=== PATIENT | female | born 1985 ===

== ENCOUNTER 2017-12-28 14:50 | Inpatient (IN) ==
[~2017-12-28 14:50] MED LIST: *HR* Nalbuphine 10 MG/ML AMPUL IVP PRN; Famotidine 20 MG/2 ML VIAL IVP PRN; Naloxone 0.4 MG/ML INJ IVP PRN; Ondansetron 4 MG/2 ML VIAL IVP PRN
--- NOTE | 2017-12-28 15:01 | OB/GYN History & Physical ---
Date of Encounter: 12/28/17 Time of Encounter: 14:55 Assessment and Plan (1) and not yet delivered in third trimester Current visit: Yes Status: Acute (2) 41 weeks gestation of Current visit: Yes Status: Acute (3) Grand multipara in labor in third trimester Current visit: Yes Status: Acute (4) Breech presentation Current visit: Yes Status: Acute Patient is not wanting a section and would prefer vaginal delivery. Did have a long discussion with her and proceed on with a vaginal induction of a breech presentation. Qualifiers: Fetus number: single or unspecified fetus Qualified Code(s): O32.1XX0 - Maternal care for breech presentation, not applicable or unspecified History of Present Illness HPI: Ms. Wood is a 32 year old female 12 para 8 at 41-3/7 weeks who was brought in by her commercial sales director for evaluation for possible possible vaginal delivery. Patient is been known to be breech and has not gone into labor. Did irrigate concerned because she is over 41 weeks and has not gone into labor and wanted her assessed to determine if she could deliver vaginally versus section. Patient does not want a section of at all possible but is not in active labor at this time. Patient is not done having children and we had long discussion about the risk of a breech delivery versus section and subsequent sections in the future. Being this is the patient's ninth baby and she was delivered a 8 pound plus baby did advise her that there is possibility of being up deliver breech. I am not comfortable sending her home at 41-1/2 weeks with questionable dates. She states she did have an ultrasound that ultrasound of 2 weeks ago which confirmed a baby was breech and the baby they measured at approximately 8 pounds. Patient is already 5 cm I recommended proceeding on with an induction for breech. Patient was counseled extensively on the potential risk of delivering a breech baby and potential risk of head entrapment but she still wants to proceed on. Patient had refused GBS by her commercial sales director at 41 weeks she is low risk we will go ahead and get an IV in her and get at least a CBC. Did inform of double set up just in case we do have to proceed on with a section. Past Med Surg Social Fam HX - Past Medical History Source: patient Medical history: no medical history Psychiatric history: no psych history - Social History Smoking Status: Never smoker Smokeless Tobacco Status: No Alcohol use: none Drug use: none Occupational status: unemployed Current living situation: Home - Independent Activity Level: Independent ambulation Recent Out of Country Travel Within the Last 8 Weeks: No Exposure or Possible Exposure to Illness During Travel: No Obstetrical History - Pregnancies : 12 Para: 8 Term: 8 : 0 Ab's: 3 Livin Review of System OB All systems PM: reviewed and no additional remarkable complaints except as stated Exam - Constitutional Constitutional: well developed, well nourished, no acute distress, average body habitus - HEENT HEENT: Mucus Membranes Moist - Neck Neck exam: full ROM - Lungs Respiratory exam: CTAB - Cardiovascular Cardiovascular exam: RRR - Abdomen Abdomen: Present: bowel sounds normal, gravid - Cervix Dilation: 4 Effacement: 70 Station: -3 ( heart tones 140s reactive no contraction seen) Results All other labs normal. - VTE Reasons for not Prescribing Prophylaxis: Treatment not Indicated - Low risk for VTE
[2017-12-28] MEDS ORDERED: miSOPROStol 25 MCG TABLET PO PRN (15:05)
[2017-12-28] MEDS: Ringers Solution, Lactated 1,000 ML IVC SCH ×2 (15:52→17:38)
[2017-12-28 15:59] LABS: Basophils % 0.3 %; Eosinophils # 0.1 K/mcL (0.0-0.6); Eosinophils % 0.9 %; Hematocrit 32.6 % (35.3-44.9); Hemoglobin 10.9 g/dL (11.5-15.4); Immature Granulocytes % 0.3 % (0-4); Lymphocytes # 1.8 K/mcL (0.6-4.6); Lymphocytes % 28.6 %; Mean Corpuscular HGB Conc 33.4 g/dL (31.6-35.5); Mean Corpuscular Hemoglobin 29.5 pg (28.0-33.3); Mean Corpuscular Volume 88.1 fL (83.0-100.0); Mean Platelet Volume 11.3 fL (9.4-12.4); Monocytes # 0.4 K/mcL (0.0-1.3); Monocytes % 6.2 %; Neutrophils # 4.1 K/mcL (1.6-8.9); Nucleated Red Blood Cells 0.3 /100 WBC (0); Platelet Count 121 K/mcL (140-400); Red Cell Distribution Width 16.1 % (11.5-14.5); Segmented Neutrophils % 63.7 %
[2017-12-28] MEDS ORDERED: Metoclopramide 10 MG/2 ML VIAL IVP ONE (16:06)
[2017-12-28] MEDS ORDERED: Penicillin G Potassium 5,000,000 UNIT in 0.9 % Sodium Chloride Mini Bag 100 ML IVPB ONE (16:37)
[2017-12-28] MEDS ORDERED: 0.9 % Sodium Chloride 1,000 ML ONE (17:06)
--- NOTE | 2017-12-28 18:35 | OB Labor Progress Note ---
Date of Encounter: 12/28/17 Time of Encounter: 16:30 Labor Progress Note - Subjective Subjective: Patient states having contractions but not that uncomfortable yet - Cervix Cervix: 5/80/-3 AROM clear fluid - Heart Tones Heart Tones: heart tones 140s reactive patient's had some decelerations periodically since arriving an IUPC was placed and soon after this patient did have what appeared to be a late 1 but no other decelerations noted with subsequent contractions - Anna Anna: IUPC placed contractions irregular - Plan Plan: Continue current care patient continues to show late decelerations we will discuss section
[2017-12-28] MEDS ORDERED: Penicillin G Potassium 2,500,000 UNIT in 0.9 % Sodium Chloride 100 ML IVPB SCH (20:00)
--- NOTE | 2017-12-28 20:18 | OB/GYN Procedure Note ---
Delivery - Delivery Date: 12/28/17 Provider: Anderson Batres Intrapartum events: none Delivery induction: misoprostol Delivery augmentation: rupture of membranes Delivery monitor: external FHT, external uterine, internal uterine Anesthesia: local Estimated Blood Loss: 100 - Infant (s) A Infant Delivery Date: 12/28/17 Infant Delivery Time: 19:33 Presentation: miles breech Position: unknown (breech) Route of delivery: breech extraction Gender: Male Viability: Viable Pounds: 7 Ounces: 11 Weight Gram: 3.495 kg at 1 minute: 2 at 5 mins: 7 Shoulder Dystocia: not encountered Specimens collected: cord blood Placenta: spontaneous Cord: 3 umbilical vessels - Repair Episiotomy: none Laceration Description: Perineal - 2nd Degree - Complications Delivery complications: none Delivery comments: Patient is a 32-year-old 12 para 8 41-3/7 weeks. Presented from her birthing center for possible section versus breech delivery patient has been stuck at 4 cm and was known to be breech her production service manager was concerned that she was not going into labor being postdates wanted her assessed. He did have her come to labor and delivery she was noted to be breech patient really does not want a section because she is not done having children and is wanting more children in the future. We did discuss the potential risk of delivering the baby breech but being that she is a grand multiparity and has delivered 8 pound babies before I felt it was safe to proceed on and get her delivered vaginally. The patient was 4 cm on admission we did give her 1 dose of Cytotec 50 g by mouth an artificial rupture when she was 5 cm. Patient with this rapidly from this point became complete patient pushed approximately 2 -3 times and we were able to deliver the fetus buttocks and legs. Once we got to the shoulders patient stopped pushing. We did encourage her to keep pushing I was able to sweep the arms across the chest and delivering the head. Infant' s cord was immediately cut and infant was handed off to waiting pediatric team. Apgars were 2 at 1 minute 7 at 5 minutes weight was 7 lbs. 11 oz. Placenta was delivered spontaneously with three-vessel cord government gauger Dr. Batres, first crusher [facility] 3, anesthesia local estimated blood loss was 100 cc. Patient had a small second-degree perineal laceration which was bleeding cervix and vagina visualized intact laceration was repaired with a 4-0 Monocryl in a running locking stitch. Cervix and vagina was visualized intact, patient tolerated the delivery well. She will be observed 2 hours before being taken the floor. - Disposition Mom disposition: stable in LDR [place] disposition: stable in LDR
[2017-12-28] MEDS ORDERED: Ibuprofen 600 MG TABLET PO PRN (20:26)
[2017-12-28] MEDS ORDERED: Oxytocin 20 units/ LR 1000 mL 20 UNIT/1,000 ML BAG IVC SCH (20:26)
[2017-12-28] MEDS ORDERED: Acetaminophen 325 MG TABLET PO PRN (20:26)
[2017-12-29 04:38] LABS: Basophils % 0.4 %; Eosinophils % 0.5 %; Hemoglobin 10.4 g/dL (11.5-15.4); Immature Granulocytes % 0.4 % (0-4); Lymphocytes % 24.3 %; Mean Corpuscular HGB Conc 33.5 g/dL (31.6-35.5); Mean Corpuscular Hemoglobin 29.3 pg (28.0-33.3); Mean Corpuscular Volume 87.3 fL (83.0-100.0); Mean Platelet Volume 11.7 fL (9.4-12.4); Monocytes # 0.6 K/mcL (0.0-1.3); Monocytes % 6.8 %; Neutrophils # 5.7 K/mcL (1.6-8.9); Platelet Count 107 K/mcL (140-400); Red Blood Count 3.55 M/mcL (3.82-4.97); Red Cell Distribution Width 16.1 % (11.5-14.5); Segmented Neutrophils % 67.6 %
[2017-12-29 08:48] VITALS: BP 107/69
[2017-12-29] MEDS ORDERED: Prenatal Vit/FA 1 EACH TABLET PO SCH (09:00)
--- NOTE | 2017-12-29 10:02 | Discharge Summary ---
Date of Encounter: 12/29/17 Time of Encounter: 10:00 - Discharge Diagnosis (1) Vaginal delivery Priority: Primary Status: Acute Comments: Pt states feeling well, breast feeding, bleeding minimal, desires discharge. - Discharge Medications Home Medications: Acetaminophen [Tylenol] 650 mg PO Q6HR PRN tablet 12/29/17 [Rx] Docusate [Colace] 100 mg PO BID capsule 12/29/17 [Rx] Ferrous Sulfate 325 mg PO DAILY tablet 12/29/17 [Rx] Ibuprofen [Motrin] 600 mg PO Q6HR PRN tablet 12/29/17 [Rx] Vit/FA 1 each PO DAILY tablet 12/29/17 [Rx] Allergies/Adverse Reactions: 3 Allergy/AdvReac Type Severity Reaction Status Date / Time No Known Allergies Allergy Verified 12/28/17 16:08 Data Procedures and tests throughout hospitalization: Laboratory Tests 12/28/17 12/29/17 14:52 04:08 WBC 6.4 8.4 RBC 3.70 L 3.55 L Hgb 10.9 L 10.4 L Hct 32.6 L 31.0 L MCV 88.1 87.3 MCH 29.5 29.3 MCHC 33.4 33.5 RDW 16.1 H 16.1 H Plt Count 121 L 107 L MPV 11.3 11.7 Immature Gran % 0.3 0.4 Seg Neutrophils % 63.7 67.6 Lymphocytes % 28.6 24.3 Monocytes % 6.2 6.8 Eosinophils % 0.9 0.5 Basophils % 0.3 0.4 Neutrophils # 4.1 5.7 Lymphocytes # 1.8 2.0 Monocytes # 0.4 0.6 Eosinophils # 0.1 0.0 Basophils # 0.0 0.0 Nucleated RBCs/100 WBC 0.3 H Labs on day of discharge: Labs from last 24 hours 12/29/17 12/28/17 04:08 14:52 WBC 8.4 6.4 RBC 3.55 L 3.70 L Hgb 10.4 L 10.9 L Hct 31.0 L 32.6 L MCV 87.3 88.1 MCH 29.3 29.5 MCHC 33.5 33.4 RDW 16.1 H 16.1 H Plt Count 107 L 121 L MPV 11.7 11.3 Immature Gran % 0.4 0.3 Seg Neutrophils % 67.6 63.7 Lymphocytes % 24.3 28.6 Monocytes % 6.8 6.2 Eosinophils % 0.5 0.9 Basophils % 0.4 0.3 Neutrophils # 5.7 4.1 Lymphocytes # 2.0 1.8 Monocytes # 0.6 0.4 Eosinophils # 0.0 0.1 Basophils # 0.0 0.0 Nucleated RBCs/100 WBC 0.3 H Date of admission: 12/28/17 14:50 Primary care physician: PCP NONE Consults: 12/28/17 20:26 Consult to Spinning Room Worker [CONS] Routine Comment: Vaginal delivery, consult needed Discharging clinician: Maria Victoria Ventura Anticipated date of discharge: 12/29/17 - Patient Status Disposition: Home, Self-Care Condition: Good Functional capacity at discharge: independent ambulation Overall status at discharge: patient is back to baseline - Discharge Instructions Follow Up With: NONE,PCP [Primary Care Provider] - - Diet and Activity Activity: resume usual activities as tolerated Diet: regular diet Hospital Course Reason for admission: IUP - , IUP at term Delivery: , breech extraction Episiotomy: none Laceration: 2nd degree Other procedures: none complications: none Discharge diagnosis: IUP at term delivered [place] baby: male Hospital course: livery - Delivery Date: 12/28/17 Provider: Anderson Batres Intrapartum events: none Delivery induction: misoprostol Delivery augmentation: rupture of membranes Delivery monitor: external FHT, external uterine, internal uterine Anesthesia: local Estimated Blood Loss: 100 - Infant (s) Infant A Delivery Date: 12/28/17 Delivery Time: 19:33 Presentation: miles breech Position: unknown (breech) Route of delivery: breech extraction Gender: Male Viability: Viable Pounds: 7 Ounces: 11 Weight Gram: 3.495 kg at 1 minute: 2 at 5 mins: 7 Shoulder Dystocia: not encountered Specimens collected: cord blood Placenta: spontaneous Cord: 3 umbilical vessels - Repair Episiotomy: none Laceration Description: Perineal - 2nd Degree - Complications Delivery complications: none Delivery comments: Patient is a 32-year-old 12 para 8 41-3/7 weeks. Presented from her birthing center for possible section versus breech delivery patient has been stuck at 4 cm and was known to be breech her director employment was concerned that she was not going into labor being postdates wanted her assessed. He did have her come to labor and delivery she was noted to be breech patient really does not want a section because she is not done having children and is wanting more children in the future. We did discuss the potential risk of delivering the baby breech but being that she is a grand multiparity and has delivered 8 pound babies before I felt it was safe to proceed on and get her delivered vaginally. The patient was 4 cm on admission we did give her 1 dose of Cytotec 50 g by mouth an artificial rupture when she was 5 cm. Patient with this rapidly from this point became complete patient pushed approximately 2 -3 times and we were able to deliver the fetus buttocks and legs. Once we got to the shoulders patient stopped pushing. We did encourage her to keep pushing I was able to sweep the arms across the chest and delivering the head. ' s cord was immediately cut and infant was handed off to waiting pediatric team. Apgars were 2 at 1 minute 7 at 5 minutes weight was 7 lbs. 11 oz. Placenta was delivered spontaneously with three-vessel cord repeat chief Dr. Batres, certified physician's assistant [facility] 3, anesthesia local estimated blood loss was 100 cc. Patient had a small second-degree perineal laceration which was bleeding cervix and vagina visualized intact laceration was repaired with a 4-0 Monocryl in a running locking stitch. Cervix and vagina was visualized intact, patient tolerated the delivery well. She will be observed 2 hours before being taken the floor. - Disposition Mom disposition: stable in LDR [place] disposition: stable in LDR liver - Delivery Date: 12/28/17 Provider: Anderson Batres Intrapartum events: none Delivery induction: misoprostol Delivery augmentation: rupture of membranes Delivery monitor: external FHT, external uterine, internal uterine Anesthesia: local Estimated Blood Loss: 100 - (s) Infant A Infant Delivery Date: 12/28/17 Infant Delivery Time: 19:33 Presentation: miles breech Position: unknown (breech) Route of delivery: breech extraction Gender: Male Viability: Viable Pounds: 7 Ounces: 11 Weight Gram: 3.495 kg at 1 minute: 2 at 5 mins: 7 Shoulder Dystocia: not encountered Specimens collected: cord blood Placenta: spontaneous Cord: 3 umbilical vessels - Repair Episiotomy: none Laceration Description: Perineal - 2nd Degree - Complications Delivery complications: none Delivery comments: Patient is a 32-year-old 12 para 8 41-3/7 weeks. Presented from her birthing center for possible section versus breech delivery patient has been stuck at 4 cm and was known to be breech her director employment was concerned that she was not going into labor being postdates wanted her assessed. He did have her come to labor and delivery she was noted to be breech patient really does not want a section because she is not done having children and is wanting more children in the future. We did discuss the potential risk of delivering the baby breech but being that she is a grand multiparity and has delivered 8 pound babies before I felt it was safe to proceed on and get her delivered vaginally. The patient was 4 cm on admission we did give her 1 dose of Cytotec 50 g by mouth an artificial rupture when she was 5 cm. Patient with this rapidly from this point became complete patient pushed approximately 2 -3 times and we were able to deliver the fetus buttocks and legs. Once we got to the shoulders patient stopped pushing. We did encourage her to keep pushing I was able to sweep the arms across the chest and delivering the head. ' s cord was immediately cut and was handed off to waiting pediatric team. Apgars were 2 at 1 minute 7 at 5 minutes infant weight was 7 lbs. 11 oz. Placenta was delivered spontaneously with three-vessel cord repeat chief Dr. Batres, certified physician's assistant [facility] 3, anesthesia local estimated blood loss was 100 cc. Patient had a small second-degree perineal laceration which was bleeding cervix and vagina visualized intact laceration was repaired with a 4-0 Monocryl in a running locking stitch. Cervix and vagina was visualized intact, patient tolerated the delivery well. She will be observed 2 hours before being taken the floor. - Disposition Mom disposition: stable in PP and appropriate for discharge. Time Attestation: Total time spent providing and/or coordinating discharge services: Time Spent: Less than 30 minutes Exam - Constitutional Vitals: Temp Pulse Resp BP Pulse Ox 97.6 F 72 16 107/69 96 12/29/17 08:47 12/29/17 08:47 12/29/17 08:47 12/29/17 08:47 12/29/17 00:30 General appearance IM: A&O X 3 - Respiratory Respiratory exam: Present: CTAB - Cardiovascular Cardiovascular exam IM: Present: RRR, +S1, +S2 - GI/Abdominal GI/Abdominal exam IM: normal bowel sounds, soft - Uterine Tone: Firm Uterus Position: 1 Finger Above Umbilicus - Extremities Exam Extremities exam IM: Present: normal capillary refill, normal inspection - Neurological Exam Neurological exam: normal gait, oriented X3 - Psychiatric Additional comments: Reports good mood.
== END 2017-12-29 11:20 | disposition home or self-care (01) | DRG 775 ==
LOC: 1NENULAB → 1NENUOBS 22:25
PROVIDERS: ADMIT Obstetrics & Gynecology; ATTEND Obstetrics & Gynecology